=== PATIENT | male | born 1995 | race Two or more races ===

== ENCOUNTER 2020-10-19 15:12 | Emergency (ER) | payer MEDICAID, OTHER ==
[~2020-10-19] VITALS: Ht 180.3 cm; Wt 74.8 kg
--- NOTE | 2020-10-19 15:15 | NUR ---
Patient wheelchair assisted to bed 11.
[2020-10-19 15:19] VITALS: BP 104/77
--- NOTE | 2020-10-19 15:40 | NUR ---
MD Vázquez evaluating pt at bedside
--- NOTE | 2020-10-19 15:47 | NUR ---
25 YEAR OLD MALE COMPLAINS OF PAIN ON RIGHT LEG X TODAY. PATIENT STATES STANDING WITHOUT EXERTING MUCH FORCE, FELT SHARP PAIN RUN FROM RIGHT GLUTEUS DRE THROUGH RIGHT FOOT. PAIN 10/10, SHARP, INCREASED WITH MOVEMENT . PATIENT VERBALIZED SLIGHT NUMBNESS/TINGLING. LIMITED ROM NOTED. PATIENT STATES INABILITY TO BEAR WEIGHT ON RIGHT LEG. TYLENOL ADMINISTERED PRIOR TO HOSPITAL VISIT TO ADDRESS PAIN; NOT EFFECTIVE. AO4, BREATHING EVEN AND UNLABORED, SKIN WARM AND DRY. BED IN LOWEST POSITION, LOCKED, X1 SIDERAIL UP. PMH - DENIED NKA
[2020-10-19] MEDS ORDERED: KETOROLAC 30 MG/ML VIAL IM ONE (15:50)
[2020-10-19] MEDS ORDERED: DEXAMETHASONE 10 MG/ML VIAL IM ONE (15:50)
[2020-10-19] MEDS ORDERED: NAPR-54 PO (16:41)
[2020-10-19 16:52] VITALS: BP 104/77
--- NOTE | 2020-10-19 16:52 | NUR ---
Pt presents to ER c/o right hip/lower back pain. Pt denies injury or trauma. Pt reports 8/10 sharp shooting pain with movement. Allergies: NKA Med hx: none
--- NOTE | 2020-10-19 16:53 | NUR ---
Patient discharged with v/s stable. Written and verbal after care instructions given and explained. Patient alert, oriented and verbalized understanding of instructions. Wheel Chair Assisted with to car. All questions addressed prior to discharge. ID band removed. Patient advised to follow up with PMD. Rx of NAPROXEN 500MG Q12H given. Patient educated on indication of medication including possible reaction and side effects. Opportunity to ask questions provided and answered.
== END 2020-10-19 16:53 | disposition home or self-care (01) ==
LOC: MED 15:12
DX: M54.31 Sciatica, right side (principal); Z79.899 Other long term (current) drug therapy
CPT/HCPCS: 72170; 72220; 96372; 99284; J1100; J1885